=== PATIENT | male | born 2000 | race Caucasian/White ===

== ENCOUNTER 2019-09-11 11:58 | Emergency (ER) | payer OTHER ==
[~2019-09-11] VITALS: Ht 180.3 cm; Wt 81.8 kg
[2019-09-11 11:59] VITALS: BP 133/85
--- NOTE | 2019-09-11 12:50 | REP ---
LEFT ELBOW SERIES: FOUR VIEWS. HISTORY: Swelling after a fall. FINDINGS: Four views of the left elbow demonstrate periarticular and proximal forearm swelling. There is a positive fat pad sign with displacement of the posterior and anterior fat pads indicating hemarthrosis. The radial head appears intact radiographically. There is evidence of fragmentation of the coronoid process, which may be acute. No other fractures seen. IMPRESSION: Positive fat pad sign indicating hemarthrosis. Chip fracture of the coronoid process suspected. No other fracture is appreciated. Electronically Signed by Benoit Sorto MD 09/11/2019 05:02 P
--- NOTE | 2019-09-11 12:50 | REP ---
LEFT FOREARM: TWO VIEWS. HISTORY: Swelling after fall. FINDINGS: Two views of the forearm show soft tissue swelling of the proximal forearm. Positive fat pad sign of the elbow is seen. Fragmentation of the coronoid process of the proximal ulna is seen on lateral view. IMPRESSION: Suspect chip fracture of the coronoid process of the proximal ulna with hemarthrosis. No other fracture seen. Electronically Signed by Benoit Sorto MD 09/11/2019 05:02 P
[2019-09-11] MEDS ORDERED: IBUPROFEN 800 MG TAB PO ONE (13:30)
[2019-09-11] MEDS ORDERED: NORC1TAB7 PO (13:37)
== END 2019-09-11 13:44 | disposition home or self-care (01) ==
LOC: M ED 11:58
DX: S52.042A Displaced fracture of coronoid process of left ulna, initial encounter for closed fracture (principal); W00.0XXA Fall on same level due to ice and snow, initial encounter; Y92.018 Other place in single-family (private) house as the place of occurrence of the external cause; M25.00 Hemarthrosis, unspecified joint

== ENCOUNTER → 2019-10-07 | Outpatient (CLI) | payer OTHER ==
[~2019-10-07] MED LIST: NORC1TAB7 PO
--- NOTE | 2019-10-07 14:21 | REP ---
CT left elbow without contrast: History: Decreased range of motion left elbow. Comparison radiographs are from October 01, 2019. Technique: Helical scanning is acquired. 2 mm axial images are reformatted. Coronal and sagittal MPR images are generated. CT findings: There is a chip fracture of the anterior surface of the coronoid process of the proximal ulna. Slight distal displacement and override is seen in the chip fracture. No other proximal ulnar fracture is seen. The olecranon process appears intact. No radial head or distal humeral fracture is appreciated. The coronoid process fracture fragment measures 10 mm in greatest medial to lateral oblique dimension. On soft-tissue window settings there is evidence of a small to moderate joint effusion displacing the anterior and posterior fat pads. Impression: Intra-articular chip fracture of the coronoid process of the proximal ulna. Small hemarthrosis. Electronically Signed by Benoit Sorto MD 10/07/2019 02:36 P
== END ==
LOC: M RAD 11:58
DX: M62.81 Muscle weakness (generalized) (principal)

== ENCOUNTER 2019-12-26 04:25 | Emergency (ER) | payer OTHER ==
[~2019-12-26] VITALS: Ht 180.3 cm; Wt 79.5 kg
[2019-12-26 06:17] VITALS: BP 128/80
== END 2019-12-26 06:22 | disposition home or self-care (01) ==
LOC: M ED 04:25
DX: R20.2 Paresthesia of skin (principal)